=== PATIENT | male | born 1960 ===

== ENCOUNTER 2021-01-24 09:38 | Emergency (ER) | payer BC, OTHER ==
[2021-01-24] MEDS ORDERED: Proparacaine 0.5% Ophth Soln 15 ML Bottle EYELF STA (11:04)
[2021-01-24] MEDS ORDERED: Tetracaine HCl/PF 0.5% 4 ML Bottle OP ONE (11:08)
--- NOTE | 2021-01-24 11:32 | EDM.PDOC ---
ED HPI GENERAL MEDICAL PROBLEM - General Chief Complaint: Eye Problems Stated Complaint: EYE PAIN AND IRRITATION Time Seen by Provider: 01/24/21 10:51 - History of Present Illness INITIAL COMMENTS - FREE TEXT/NARRATIVE: History of present illness: [] The patient was grinding metal his latest night 2 nights ago. Now he woke up with a foreign body sensation pain and photophobia. His vision is blurry. Review of systems: As per history of present illness and below otherwise all systems reviewed and negative. Past medical history: As per history of present illness and as reviewed below otherwise noncontributory. Surgical history: As per history of present illness and as reviewed below otherwise noncontributory. Social history: No reported history of drug or alcohol abuse. Family history: As per history of present illness and as reviewed below otherwise noncontributory. Physical exam: Constitutional - well developed, well-nourished and in no acute distress HEENT - normocephalic, no evidence of trauma - external nose and mouth normal - no mass in neck and no JVD - mucosae moist EYES -with the Garcia lamp and direct light I see a foreign body in the anterior center field of vision. It looks like rest. Numbers gently touched after anesthetic and the discoloration remains. Full EOM, PERRL, no icterus - no evidence of inflammation, injection, or drainage Respiratory - no respiratory distress, equal bilateral expansion Neurologic - Alert and oriented times four - CN II-XII grossly intact - motor sensory and coordination symmetrically normal Psychiatric - appropriate mood and affect with normal thought content Hematologic - No petechiae or purpura - mucosa appropriate color and sclera not pale - normal nail bed color and refill Integument - no rash or evidence of trauma - normal turgor Diagnostics: [] Therapeutics: [] Impression: [] Plan: [] Definitive disposition and diagnosis as appropriate pending reevaluation and review of above. - Related Data Allergies Allergy/AdvReac Type Severity Reaction Status Date / Time No Known Allergies Allergy Verified 01/24/21 10:56 Home Meds: Home Meds . [No Known Home Meds] 01/24/21 [History] Past Medical History - Infectious Disease History Infectious Disease History: Reports: None Social & Family History - Tobacco Use Tobacco Use Status *Q: Never Tobacco User - Caffeine Use Caffeine Use: Reports: Coffee, Soda - Recreational Drug Use Recreational Drug Use: No ED ROS GENERAL - Review of Systems Review Of Systems: Comprehensive ROS is negative, except as noted in HPI. ED EXAM GENERAL W FULL EYE - Physical Exam Exam: See Below Text/Narrative:: My physical exam is in the HPI Course - Vital Signs Last Recorded V/S: Last Vital Signs Temp 36.2 C 01/24/21 10:56 Pulse 61 01/24/21 10:56 Resp 18 01/24/21 10:56 BP 129/72 01/24/21 10:56 Pulse Ox 95 01/24/21 10:56 - Orders/Labs/Meds Meds: Medications Discontinued Medications Generic Name Dose Route Start Last Admin Trade Name Freq PRN Reason Stop Dose Admin Proparacaine HCl 0.2 ml 01/24/21 11:04 01/24/21 11:14 Proparacaine 0.5% Ophth Soln 15 Ml Bottle EYELF 01/24/21 11:05 Not Given STAT STA Tetracaine HCl 1 ml 01/24/21 11:08 01/24/21 11:12 Tetracaine Hcl/Pf 0.5% 4 Ml Bottle OP 01/24/21 11:09 1 applic ASDIRECTED ONE Administration Departure - Departure Time of Disposition: 11:31 Disposition: Home, Self-Care 01 Condition: Good Clinical Impression: Foreign body of left cornea - Discharge Information Instructions: Eye Foreign Body, [id number] Referrals: Maribel Montez MD [Primary Care Provider] - Helder Avalos MD [Ordering Only Provider] - Forms: ED Department Discharge Additional Instructions: Dr. Avalos is good to meet you in the parking lot of the [facility] and let you end. He plans to be there by noon. [facility] [address] [place] [id number] [id number] The following information is given to patients seen in the emergency department who are being discharged to home. This information is to outline your options for follow-up care. We provide all patients seen in our emergency department with a follow-up referral. The need for follow-up, as well as the timing and circumstances, are variable depending upon the specifics of your emergency department visit. If you don't have a primary care physician on staff, we will provide you with a referral. We always advise you to contact your personal physician following an emergency department visit to inform them of the circumstance of the visit and for follow-up with them and/or the need for any referrals to a consulting specialist. The emergency department will also refer you to a specialist when appropriate. This referral assures that you have the opportunity for follow-up care with a specialist. All of these measure are taken in an effort to provide you with optimal care, which includes your follow-up. Under all circumstances we always encourage you to contact your private physician who remains a resource for coordinating your care. When calling for follow-up care, please make the office aware that this follow-up is from your recent emergency room visit. If for any reason you are refused follow-up, please contact the [facility] Emergency Department at and asked to speak to the emergency department charge nurse. Care Plan Goals: Please go over to Dr. Avalos at [facility] for an appointment at 12:00 for your foreign body of the eye. Sepsis Event Note (ED) - Focused Exam Vital Signs: Vital Signs Temp Pulse Resp BP Pulse Ox 01/24/21 10:56 36.2 C 61 18 129/72 95
== END 2021-01-24 11:38 | disposition home or self-care (01) ==
LOC: MW.ED 09:38
DX: T15.02XA Foreign body in cornea, left eye, initial encounter (principal); W22.8XXA Striking against or struck by other objects, initial encounter
CPT/HCPCS: 99283